=== PATIENT | female | born 2000 | race Two or more races ===

== ENCOUNTER 2022-03-10 10:03 | Emergency (ER) | payer OTHER ==
[2022-03-10 10:36] VITALS: BP 110/62; PULSE 104; TEMP 98.5; BMI 36.3
[2022-03-10 11:18] LABS: BASO % 0.5 % (0-2.0); EOS % 0.7 % (0-4.5); HEMATOCRIT 25.5 % (32.4-45.2); HEMOGLOBIN 7.6 GM/dL (10.7-15.3); LYMPH % 5.9 % (8-40); MCHC 29.7 g/dl (32.0-36.0); MEAN CELL VOLUME 56.3 fl (80-96); MEAN PLT VOLUME 9.1 fl (7.5-11.1); MONO % 5.5 % (3.8-10.2); NEUT % 87.4 % (42.8-82.8); PLATELET COUNT 259 10^3/uL (134-434); RBC 4.53 M/mm3 (3.60-5.2); RDW 19.3 % (11.6-15.6); WHITE BLOOD COUNT 9.9 K/mm3 (4.0-10.0)
[2022-03-10 11:21] LABS: MCH 16.7 pg (25.7-33.7)
[2022-03-10 11:31] LABS: EPI CELLS 22 /uL (0-25.1); HCG,QUALITATIVE URINE Negative; HYALINE CASTS 1 /uL (0-3.1); URINE APPEARANCE CLEAR; URINE BACTERIA 868 /uL (0-1359); URINE BILIRUBIN NEGATIVE (NEGATIVE); URINE COLOR YELLOW; URINE GLUCOSE (UA) NEGATIVE (NEGATIVE); URINE KETONE TRACE (NEGATIVE); URINE LEUK ESTERASE TRACE (NEGATIVE); URINE NITRITE NEGATIVE (NEGATIVE); URINE PROTEIN TRACE (NEGATIVE); URINE UROBILINOGEN 0.2 mg/dL (0.2-1.0); URINE WBC 49 /uL (0-25.8)
[2022-03-10 11:37] LABS: ALBUMIN 3.2 g/dl (3.4-5.0); CALCIUM 8.6 mg/dL (8.5-10.1)
[2022-03-10 11:38] LABS: BLOOD UREA NITROGEN 7.8 mg/dL (7-18)
[2022-03-10 11:41] LABS: CREATININE 0.7 mg/dL (0.55-1.3)
[2022-03-10 11:42] LABS: BILIRUBIN,TOTAL 0.4 mg/dL (0.2-1); TOT PROT 7.3 g/dl (6.4-8.2)
[2022-03-10 12:06] LABS: URINE RBC 200.8 /uL (0-23.9); YEAST NEGATIVE (NEGATIVE)
== END 2022-03-10 12:23 | disposition home or self-care (01) ==
LOC: JER 10:03
DX: R56.9 Unspecified convulsions (principal)
CPT/HCPCS: 36415; 70450-TC; 71046-TC-FY; 80053; 80177; 81003; 84703; 85025; 87077; 87086; 93005; 93010; 99285-25